=== PATIENT | female | born 1945 | race Caucasian/White ===

== ENCOUNTER 2017-01-02 15:22 | Emergency (ER) | payer BC, MEDICARE, OTHER ==
[2017-01-02 15:44] VITALS: BP 137/64; PULSE 58; RESP 18; TEMP 98.2; O2SAT 98
[2017-01-02 15:52] LABS: BASOPHILS % (AUTO) 1 % (0-3); EOSINOPHILS % (AUTO) 4 % (0-9); HEMATOCRIT 31 % (35-47); MEAN CORPUSCULAR VOLUME 86 fL (81-99); MONOCYTES % (AUTO) 6.2 % (0-12)
[2017-01-02 15:59] LABS: CALCIUM 9.2 mg/dl (8.5-10.1); POTASSIUM 4.1 mMol/L (3.5-5.1)
[2017-01-02 16:00] LABS: APPEARANCE,URINE Clear; BILIRUBIN,URINE NEGATIVE (NEGATIVE); COLOR,URINE Yellow; GLUCOSE, URINE (UA) NEGATIVE (NEGATIVE); KETONES,URINE NEGATIVE (NEGATIVE); LEUKOCYTE ESTERASE ,URINE NEGATIVE (NEGATIVE); NITRATE,URINE NEGATIVE (NEGATIVE); OCCULT BLOOD,URINE TRACE INTACT (NEG-TRACE); PH,URINE 5.5; UROBILINOGEN,URINE 0.2 (0.2-1.0 EU)
[2017-01-02 16:07] LABS: RBC,URINE 0-2 (0-3AV/HPF); WBC,URINE 0-2 (0-5AV/HPF)
== END 2017-01-02 16:27 | disposition home or self-care (01) | DRG 884 ==
LOC: ED 15:22
DX: F03.90 Unspecified dementia, unspecified severity, without behavioral disturbance, psychotic disturbance, mood disturbance, and anxiety (principal); Z04.3 Encounter for examination and observation following other accident; W07.XXXA Fall from chair, initial encounter
CPT/HCPCS: 36415; 80048; 81001; 85025; 99282

== ENCOUNTER 2018-03-29 22:04 | Emergency (ER) | payer OTHER ==
[2018-03-29 22:39] LABS: BASOPHILS % (AUTO) 1 % (0-3); EOSINOPHILS % (AUTO) 4 % (0-9); HEMATOCRIT 34 % (35-47); HEMOGLOBIN 11.4 gm/dl (12.0-15.5); LYMPHOCYTES % (AUTO) 23.6 % (10-50); MEAN CORPUSCULAR HEMOGLOBIN 28.7 pg (27.0-32.0); MEAN CORPUSCULAR HGB CONC 33.2 gm/dl (32.0-36.0); MEAN CORPUSCULAR VOLUME 86 fL (81-99); MONOCYTES % (AUTO) 7.1 % (0-12); NEUTROPHILS % (AUTO) 64.1 % (37-80)
[2018-03-29 22:53] LABS: ALBUMIN 3.2 gm/dl (3.4-5.0); BILIRUBIN,TOTAL 0.8 mg/dl (0.2-1.0); CALCIUM 8.7 mg/dl (8.5-10.1); CREATININE 1.57 mg/dl (0.60-1.00); TOTAL PROTEIN 6.5 gm/dl (6.4-8.2)
[2018-03-29 22:58] LABS: POTASSIUM 3.9 mMol/L (3.5-5.1)
[2018-03-29 23:25] VITALS: BP 103/50; PULSE 47; RESP 14; TEMP 96.7; O2SAT 95
[2018-03-29] MEDS ORDERED: TDAP VACCINE 0.5 ML SUS IM ONE ×2 (23:37→23:39)
== END 2018-03-29 23:55 | DRG 605 ==
LOC: ED 22:04
DX: S00.93XA Contusion of unspecified part of head, initial encounter (principal); W19.XXXA Unspecified fall, initial encounter; R40.2362 Coma scale, best motor response, obeys commands, at arrival to emergency department; R40.2142 Coma scale, eyes open, spontaneous, at arrival to emergency department; R40.2242 Coma scale, best verbal response, confused conversation, at arrival to emergency department; E11.9 Type 2 diabetes mellitus without complications
CPT/HCPCS: 36415; 70450; 71045; 72125; 80053; 85025; 90471; 90715; 99285; 99291; G0390

== ENCOUNTER 2018-08-28 09:54 | Emergency (ER) | payer OTHER ==
[2018-08-28 10:14] VITALS: TEMP 97.1
[2018-08-28 10:50] LABS: BASOPHILS % (AUTO) 1 % (0-3); EOSINOPHILS % (AUTO) 3 % (0-9); HEMATOCRIT 35 % (35-47); HEMOGLOBIN 11.7 gm/dl (12.0-15.5); MEAN CORPUSCULAR HEMOGLOBIN 29.2 pg (27.0-32.0); MEAN CORPUSCULAR HGB CONC 33.3 gm/dl (32.0-36.0); MEAN CORPUSCULAR VOLUME 88 fL (81-99); MONOCYTES % (AUTO) 6.3 % (0-12); NEUTROPHILS % (AUTO) 77.1 % (37-80)
[2018-08-28 11:07] LABS: ALBUMIN 3.1 gm/dl (3.4-5.0); BILIRUBIN,TOTAL 0.7 mg/dl (0.2-1.0); CALCIUM 8.8 mg/dl (8.5-10.1); CARBON DIOXIDE 34.7 mEq/L (21-32); CREATININE 1.51 mg/dl (0.60-1.00); POTASSIUM 3.8 mMol/L (3.5-5.1); TOTAL PROTEIN 6.6 gm/dl (6.4-8.2)
[2018-08-28 11:16] LABS: APPEARANCE,URINE Clear; BILIRUBIN,URINE NEGATIVE (NEGATIVE); COLOR,URINE Yellow; GLUCOSE, URINE (UA) NEGATIVE (NEGATIVE); KETONES,URINE NEGATIVE (NEGATIVE); LEUKOCYTE ESTERASE ,URINE NEGATIVE (NEGATIVE); NITRATE,URINE NEGATIVE (NEGATIVE); OCCULT BLOOD,URINE TRACE INTACT (NEG-TRACE); UROBILINOGEN,URINE 0.2 (0.2-1.0 EU)
[2018-08-28 11:54] LABS: BACTERIA 1+ (< 1+); CRYSTALS NEGATIVE (0-3 AVE/HPF); EPITHELIAL CELLS NEGATIVE (SQUAMOUS)
[2018-08-28 13:28] VITALS: BP 146/62; PULSE 56; RESP 14; O2SAT 97
== END 2018-08-28 13:39 | disposition home or self-care (01) | DRG 556 ==
LOC: ED 09:54
DX: M25.551 Pain in right hip (principal); S00.93XA Contusion of unspecified part of head, initial encounter; W18.30XA Fall on same level, unspecified, initial encounter; E11.9 Type 2 diabetes mellitus without complications; E03.9 Hypothyroidism, unspecified
CPT/HCPCS: 36415; 73501; 80053; 81001; 85025; 99283; 99284